=== PATIENT | female | born 1975 | race Two or more races ===

== ENCOUNTER 2024-11-01 13:33 | Emergency (ER) | payer OTHER ==
[~2024-11-01] VITALS: Ht 167.6 cm; Wt 63.5 kg
[2024-11-01] MEDS ORDERED: FAMOTIDINE/PF 20 MG/2 ML VIAL IV ONE (18:15)
[2024-11-01] MEDS ORDERED: 0.9 % SODIUM CHLORIDE 500 ML IV ONE (18:15)
[2024-11-01 19:08] LABS: HEMOGLOBIN 14.7 g/dL (12.0-15.00); MEAN CELL VOLUME 87.5 fL (80.00-100.00); MEAN CORPUSCULAR HEMOGLOBIN 29.9 pg (27.00-32.0); MEAN CORPUSCULAR HGB CONC 34.1 g/dl (32.0-36.0); PLATELET COUNT 258 K/uL (150-450); RED BLOOD COUNT 4.92 M/uL (4.00-6.00); RED CELL DISTRIBUTION WIDTH 14.2 % (11.5-14.5)
[2024-11-01 19:29] LABS: PH,URINE 5.5 (5.0-8.0); URINE APPEARANCE Clear; URINE BILIRRUBIN Negative (NEGATIVE); URINE BLOOD Negative; URINE COLOR Yellow; URINE GLUCOSE Negative (NEGATIVE); URINE KETONE Negative (NEGATIVE); URINE LEUKOCYTE Trace; URINE NITRATE Negative; URINE PROTEIN Negative (NEGATIVE); URINE UROBILINOGEN 0.2 E.U./dl
[2024-11-01 19:33] LABS: URINE BACTERIA 845.7 uL (0.0-1933); URINE EPITHELIAL CELLS 36.5 uL (0.0-38.8); URINE RBC 4.7 uL (0.0-20.8); URINE WBC 47.9 uL (0.0-23.2)
[2024-11-01 19:39] LABS: URINE CAST 0.29 uL (0.0-1.40)
[2024-11-01 19:59] LABS: ALBUMIN 4.6 gm/dL (3.4-5.0); BILIRUBIN TOTAL 0.69 mg/dL (0.3-1.2); CALCIUM 10.2 mg/dL (8.5-10.1); CREATININE SERUM 0.8 mg/dL (0.55-1.02); GFR 75.62; POTASSIUM 4.05 mEq/L (3.5-5.1); TOTAL PROTEIN 8.6 gm/dL (6.4-8.2)
[2024-11-01] MEDS ORDERED: MORPHINE SULFATE 2 MG/ML SYRINGE IV ONE (20:15)
[2024-11-01] MEDS ORDERED: CIPRO500 MG PO (21:50)
[2024-11-01] MEDS ORDERED: PEPCID20 MG PO (21:50)
[2024-11-01] MEDS ORDERED: MIRALAX17 GM PO (21:50)
[2024-11-01] MEDS ORDERED: METRONIDAZOLE500 MG PO (22:14)
== END 2024-11-01 22:37 ==
LOC: ER 13:35
PROVIDERS: Emergency Medicine; Preventive Medicine Public Health & General Preventive Medicine
DX: K52.9 Noninfective gastroenteritis and colitis, unspecified (principal); R10.2 Pelvic and perineal pain; Z88.6 Allergy status to analgesic agent